=== PATIENT | female | born 1990 | race Caucasian/White ===

== ENCOUNTER 2021-05-24 19:24 | Inpatient (IN) | payer MEDICAID ==
[2021-05-24] MEDS ORDERED: Ondansetron 4 MG/2 ML SDV IVPUSH PRN (20:52)
[2021-05-24] MEDS ORDERED: Lidocaine 1% 50 ML MDV INJECT ONE (20:52)
[2021-05-24] MEDS ORDERED: Acetaminophen 325 MG Tab PO PRN (20:52)
[2021-05-24] MEDS ORDERED: Nalbuphine 10 MG/1 ML Vial IVPUSH PRN (20:52)
[2021-05-24] MEDS ORDERED: Sodium Chloride 0.9% 10 ML Syringe FLUSH PRN ×2 (20:52→23:27)
[2021-05-24] MEDS ORDERED: Calcium Carbonate 500 MG Tab.Chew PO PRN (20:52)
[2021-05-24] MEDS ORDERED: Lactated Ringers 1,000 ML IV SCH ×2 (21:00→23:30)
[2021-05-24] MEDS ORDERED: Oxytocin/Lactated Ringers 10 UNIT/1,000 ML BAG IV SCH ×2 (21:00)
--- NOTE | 2021-05-24 22:42 | PCM.LDHP ---
L&D History of Present Illness - General Date of Service: 05/24/21 Admit Problem/Dx: Patient Status Order with Admit Dx/Problem 05/24/21 20:51 Patient Status [ADT] Routine 05/24/21 20:52 Patient Status [ADT] Routine Admission Diagnosis/Problem Admission Diagnosis/Problem Source of Information: Patient History Limitations: Reports: No Limitations - History of Present Illness Introduction:: 31 yo at 39 weeks gestation who was scheduled for elective induction of labor in the morning due to history of large babies. She has been having contractions today and seemed to be getting stronger, so she came in to be checked. She was 3 cm dilated, 50% effaced when I saw her on 05/22/21. RN exam this evening revealed cx 3-4 cm dilated and mild contractions about every 10 minutes, membranes intact. She is GBS negative with this . Blood type is O positive, antibody screen negative. Infectious disease screenings negative including Hep C. Her 1 hour glucola was borderline at 133, so I did do a 3 hour GTT and it was negative for GDM, with all values wnl. She has had large babies, last baby was 9 lb 1 oz at 39 weeks and was a baby girl. Last ultrasound in this was 05/05/21 and EFW was 7 lb 2 oz (86%), cephalic presentation. LAURY 12.5. She did receive a Tdap with this . Her COVID test on admission is negative. It was decided to keep her tonight and start her induction. - Related Data Allergies/Adverse Reactions: Allergies Allergy/AdvReac Type Severity Reaction Status Date / Time No Known Allergies Allergy Verified 05/24/21 20:48 Home Medications: Home Meds Vits #93/Iron Fum/FA [ Formula Tablet] 1 each PO DAILY 03/04/16 [History] Cetirizine [ZyrTEC] 5 mg PO DAILY 05/24/21 [History] Ferrous Sulfate [Iron] 325 mg PO DAILY 05/24/21 [History] Omeprazole 20 mg PO DAILY 05/24/21 [History] Past Medical History - Past Health History Medical/Surgical History: Denies Medical/Surgical History Social & Family History - Family History Family Medical History: Unobtainable H&P Review of Systems - Review of Systems: Review Of Systems: See Below General: Reports: No Symptoms HEENT: Reports: No Symptoms Pulmonary: Reports: No Symptoms Cardiovascular: Reports: Edema Gastrointestinal: Reports: No Symptoms Genitourinary: Reports: No Symptoms Musculoskeletal: Reports: No Symptoms Skin: Reports: No Symptoms Psychiatric: Reports: No Symptoms Neurological: Reports: No Symptoms Hematologic/Lymphatic: Reports: No Symptoms Immunologic: Reports: No Symptoms L&D Exam - Exam Exam: See Below - Vital Signs Weight: 135.624 kg - OB Specific Contraction Frequency (min): 5 Contraction Intensity: Mild to Moderate Movement: Active Heart Tones: Present Heart Tones per Min: 130 Heart Rate (FHR) Variability: Moderate (6-25 bmp) Presentation: Unable to Assess Estimated Weight: 8 lb - Olson Score Olson Score Cervix Position: Midposition Olson Score Consistency: Soft Olson Score Effacement: 51-70% Olson Score Dilation: 3-4 cm Olson Score 's Station: -3 Olson Score Total: 7 - Exam General: Alert, Oriented HEENT: Conjunctiva Clear, Mucosa Moist & [place] Neck: Supple Lungs: Normal Respiratory Effort Cardiovascular: Regular Rate, Regular Rhythm GI/Abdominal Exam: Normal Bowel Sounds Rectal Exam: Deferred Genitourinary: Normal external exam Back Exam: Normal Inspection, Full Range of Motion Extremities: Normal Inspection, Normal Range of Motion, Pedal Edema Skin: Warm, Dry, Intact Neurological: Cranial Nerves Intact Psychiatric: Alert, Normal Affect, Normal Mood - Patient Data Lab Results Last 24 hrs: Laboratory Results - last 24 hr 05/24/21 05/24/21 Range/Units 21:15 21:15 WBC 8.24 (3.98-10.04) K/mm3 RBC 4.79 (3.98-5.22) M/mm3 Hgb 12.7 (11.2-15.7) gm/dl Hct 38.4 (34.1-44.9) % MCV 80.2 (79.4-94.8) fl MCH 26.5 (25.6-32.2) pg MCHC 33.1 (32.2-35.5) g/dl RDW Std Deviation 45.5 (36.4-46.3) fL Plt Count 278 (182-369) K/mm3 MPV 10.6 (9.4-12.3) fl Neut % (Auto) 60.5 (34.0-71.1) % Lymph % (Auto) 29.1 (19.3-51.7) % Snyder % (Auto) 8.3 (4.7-12.5) % Eos % (Auto) 1.8 (0.7-5.8) Baso % (Auto) 0.1 (0.1-1.2) % Neut # (Auto) 4.98 (1.56-6.13) K/mm3 Lymph # (Auto) 2.40 (1.18-3.74) K/mm3 Snyder # (Auto) 0.68 H (0.24-0.36) K/mm3 Eos # (Auto) 0.15 (0.04-0.36) K/mm3 Baso # (Auto) 0.01 (0.01-0.08) K/mm3 SARS-CoV-2 RNA (BROOKS) Negative (NEGATIVE) Result Diagrams: 05/24/21 21:15 - Problem List (1) 39 weeks gestation of SNOMED Code(s): 80149223 ICD Code: Z3A.39 - 39 WEEKS GESTATION OF Status: Acute Current Visit: Yes (2) Encounter for elective induction of labor SNOMED Code(s): 390814719 ICD Code: Z34.90 - ENCNTR FOR SUPRVSN OF NORMAL , UNSP, UNSP TRIMESTER Status: Acute Current Visit: Yes (3) Conner breech presentation SNOMED Code(s): 02162685 ICD Code: O32.1XX0 - MATERNAL CARE FOR BREECH PRESENTATION, UNSP Status: Acute Current Visit: Yes Problem List Initiated/Reviewed/Updated: Yes Orders Last 24hrs: Active Orders 24 hr Category Date Time Status Patient Status [ADT] Routine ADT 05/24/21 20:52 Active Activity as Tolerated [RC] PFP Care 05/24/21 20:52 Active Communication Order [RC] ASDIRECTED Care 05/24/21 20:52 Active Heart Tones [RC] ASDIRECTED Care 05/24/21 20:53 Active Non Stress Test [RC] PER UNIT ROUTINE Care 05/24/21 20:51 Active Non Stress Test [RC] PER UNIT ROUTINE Care 05/24/21 20:52 Active Notify Provider [RC] PFP Care 05/24/21 20:52 Active Notify Provider [RC] PRN Care 05/24/21 20:52 Active Peripheral IV Care [RC] . DIRECTED Care 05/24/21 20:53 Active Vital Signs [RC] PER UNIT ROUTINE Care 05/24/21 20:51 Active Vital Signs [RC] PER UNIT ROUTINE Care 05/24/21 20:52 Active Regular Diet [DIET] Diet 05/25/21 Breakfast Active RAPID PLASMA REAGIN,RPR [CHEM] Routine Lab 05/24/21 21:15 Received Acetaminophen [TylenoL] Med 05/24/21 20:52 Active 650 mg PO Q4H PRN Calcium Carbonate [Tums] Med 05/24/21 20:52 Active 1,000 mg PO Q2H PRN Lactated Ringers [Ringers, Lactated] 1,000 ml Med 05/24/21 21:00 Active IV ASDIRECTED Nalbuphine [Nubain] Med 05/24/21 20:52 Active 10 mg IVPUSH Q2H PRN Ondansetron [Zofran] Med 05/24/21 20:52 Active 4 mg IVPUSH Q4H PRN Oxytocin/Lactated Ringers [Pitocin in LR 10 Units/1,000 Med 05/24/21 21:00 Active ML] 10 unit in 1,000 ml IV .CONTINUOUS Oxytocin/Lactated Ringers [Pitocin in LR 10 Units/1,000 Med 05/24/21 21:00 Active ML] 10 unit in 1,000 ml IV TITRATE Sodium Chloride 0.9% [Saline Flush] Med 05/24/21 20:52 Active 10 ml FLUSH ASDIRECTED PRN Electronic Heart Tones Ext w TOCO [WOMSER] Oth 05/24/21 20:52 Ordered Routine Electronic Heart Tones Internal [WOMSER] Per Unit Oth 05/24/21 20:52 Ordered Routine Peripheral IV Insertion Adult [OM.PC] Routine Oth 05/24/21 20:52 Ordered Resuscitation Status Routine Resus Stat 05/24/21 20:52 Ordered Medication Orders Acetaminophen (Acetaminophen 325 Mg Tab) 650 mg PO Q4H PRN PRN Reason: Pain (Mild 1-3) and fever Calcium Carbonate/Glycine (Calcium Carbonate 500 Mg Tab.Chew) 1,000 mg PO Q2H PRN PRN Reason: Indigestion Lactated Ringer's (Ringers, Lactated) 1,000 mls @ 100 mls/hr IV ASDIRECTED BIRD Last Admin: 05/24/21 21:18 Dose: 100 mls/hr Documented by: DILLON Oxytocin/Lactated Ringer's (Pitocin In Lr 10 Units/1,000 Ml) 10 unit in 1,000 mls @ 12 mls/hr IV TITRATE BIRD; Protocol Last Admin: 05/24/21 21:19 Dose: 2 munits/min, 12 mls/hr Documented by: DILLON Oxytocin/Lactated Ringer's (Pitocin In Lr 10 Units/1,000 Ml) 10 unit in 1,000 mls @ 500 mls/hr IV .CONTINUOUS BIRD Nalbuphine HCl (Nalbuphine 10 Mg/1 Ml Vial) 10 mg IVPUSH Q2H PRN PRN Reason: Pain Ondansetron HCl (Ondansetron 4 Mg/2 Ml Sdv) 4 mg IVPUSH Q4H PRN PRN Reason: Nausea/Vomiting Sodium Chloride (Sodium Chloride 0.9% 10 Ml Syringe) 10 ml FLUSH ASDIRECTED PRN PRN Reason: Keep Vein Open Assessment/Plan Comment:: 31 you at 39 weeks gestation presents with contractions and elective induction scheduled for tomorrow. Unable to determine presenting part when I examined her. I did do AROM for clear fluid and was not able to determine presenting part. Bedside ultrasound by nursing was not definite either, so we had c t tech come and do ultrasound. Baby is in conner breech presentation with head to maternal right in the upper abdomen. She is in labor and has ruptured membranes, so version is not an option. Will proceed with primary section. Dr. Stafford was consulted to perform . Discussed with patient. She does plan to breastfeed.
[2021-05-24] MEDS ORDERED: Citric Acid/Sodium Citrate Solution 30 ML Cup PO ONE (23:27)
[2021-05-24] MEDS ORDERED: ceFAZolin 2 GM in Premix Bag 1 BAG IV ONE (23:27)
[2021-05-24] MEDS ORDERED: Metoclopramide 10 MG/2 ML SDV IVPUSH ONE (23:27)
[2021-05-24] MEDS ORDERED: Azithromycin 500 MG in Sodium Chloride 0.9% 250 ML IV ONE (23:35)
[2021-05-24] MEDS ORDERED: Citric Acid/Sodium Citrate Solution 30 ML Cup ONE (23:40)
[2021-05-24] MEDS ORDERED: Metoclopramide 10 MG/2 ML SDV ONE (23:41)
[2021-05-24] MEDS ORDERED: Bupivacaine 0.5% 30 ML SDV ONE (23:50)
--- NOTE | 2021-05-24 23:59 | PCM.SN.2 ---
- Free Text/Narrative Note: OB consultation note: Carole is a 31 yo 004 white female at 39 weeks gestation with an FRANCIE of 05/31/2021 who was scheduled for elective induction of labor on 05/25/2021 due to history of large babies. She has been having contractions today and seemed to be getting stronger, so she came in to be checked. She had been 3 cm dilated, 50% effaced when seen on 05/22/21. RN exam this evening revealed cx 3-4 cm dilated and mild contractions about every 10 minutes, membranes intact. With rupture of membranes patient was felt to have a breech presenting . Ultrasound confirmed jered breech presentation. Discussion has been held with patient as to alternative ways of delivery and recommendation is to proceed with a primary section. The procedure, risk, benefits, attempt at vaginal breech delivery and its risks and benefits are discussed in detail with patient. She appears understand and wishes to proceed. Consent is signed for primary low uterine segment transverse section. 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 Patient has had 4 vaginal deliveries in the 7 pounds 1 ounce to 9 pound 1 ounce range. She has had reasonably on remarkable course. She is group B strep negative. She has a history of uterine fibroids affecting . was dated by an ultrasound done on 10/06/2020 at 6-1/7 weeks gestational age. At that time she was noted to have a left posterior fibroid measuring 3 x 2 x 3 cm and a fundal fibroid measuring 1.6 x 1.8 x 1.3 cm. Medications: 1. vitamins 2. Ferrous sulfate 3 and 25 mg p.o. daily. Past medical history: 1. x4. Past surgical history: 1. ACL surgery 2012 2. Laparoscopic cholecystectomy 2011 3. Tonsillectomy 1997. See admission history and physical for family history, social history review of systems. Physical exam: Patient is a overweight white female in no acute distress. She is somewhat anxious regarding the breech presentation recommendations for section. HEENT, neck and back syndromes Lungs are clear with good breath sounds in all lung avalos. Cardiovascular exam shows very regular. Breast exam deferred. Abdomen is obese, patient has a panniculus. Genital exam is deferred. Assessment: 1. 39 0/7-week intrauterine , active labor, progressive cervical dilationfrank breech presentation. 2. Risk factors for surgery include obesity, active labor. 3. Patient plans to breast-feed. 4. Group B strep screen negative 5. Patient is had her Tdap on 03/16/2021. She is rubella immune. Plan: 1. Primary lower uterine segment transverse section through Pfannenstiel skin incision under spinal block. Procedure, risk, benefits, alternatives care and follow-up discussed with patient. She appears understand, wishes to proceed and has signed a consent. 2. DVT prophylaxis with SCDs 3. Infection prophylaxis with Ancef 2 g IV preop and azithromycin per protocol. 4. Preoperative laboratory testing has already been done including CBC, type and screen, COVID-19 testing 5. Support breast-feeding decision 6. Pediatrics to be in attendance for delivery.
--- NOTE | 2021-05-25 00:12 | PCM.PREANE ---
Preanesthetic Assessment - Procedure Proposed Procedure: for breech presentation - Anesthesia/Transfusion/Family Hx Anesthesia History: Prior Anesthesia Without Reaction Family History of Anesthesia Reaction: No Transfusion History: No Prior Transfusion(s) Intubation History: Unknown - Review of Systems General: No Symptoms Pulmonary: No Symptoms Cardiovascular: No Symptoms Gastrointestinal: No Symptoms (GERD), Constipation, Nausea Neurological: No Symptoms Other: Reports: None, Sinus Problem (seasonal allergies) - Physical Assessment NPO Status Date: 05/25/21 NPO Status Time: 03:00 Vital Signs: Last Vital Signs Temp 37.0 C 05/24/21 20:52 Pulse 95 05/24/21 20:52 Resp 16 05/24/21 20:52 BP 111/66 05/24/21 20:52 Pulse Ox 98 05/24/21 20:52 Height: 1.65 m Weight: 135.624 kg ASA Class: 3E Mental Status: Alert & Oriented x3 Airway Class: Mallampati = 2 Dentition: Reports: Normal Dentition, Caries Thyro-Mental Finger Breadths: 3 Mouth Opening Finger Breadths: 3 ROM/Head Extension: Full Lungs: Clear to Auscultation, Normal Respiratory Effort Cardiovascular: Regular Rate, Regular Rhythm, No Murmurs - Lab Values: Laboratory Last Values WBC 8.24 K/mm3 (3.98-10.04) 05/24/21 21:15 RBC 4.79 M/mm3 (3.98-5.22) 05/24/21 21:15 Hgb 12.7 gm/dl (11.2-15.7) 05/24/21 21:15 Hct 38.4 % (34.1-44.9) 05/24/21 21:15 MCV 80.2 fl (79.4-94.8) 05/24/21 21:15 MCH 26.5 pg (25.6-32.2) 05/24/21 21:15 MCHC 33.1 g/dl (32.2-35.5) 05/24/21 21:15 RDW Std Deviation 45.5 fL (36.4-46.3) 05/24/21 21:15 Plt Count 278 K/mm3 (182-369) 05/24/21 21:15 MPV 10.6 fl (9.4-12.3) 05/24/21 21:15 Neut % (Auto) 60.5 % (34.0-71.1) 05/24/21 21:15 Lymph % (Auto) 29.1 % (19.3-51.7) 05/24/21 21:15 [place] % (Auto) 8.3 % (4.7-12.5) 05/24/21 21:15 Eos % (Auto) 1.8 (0.7-5.8) 05/24/21 21:15 Baso % (Auto) 0.1 % (0.1-1.2) 05/24/21 21:15 Neut # (Auto) 4.98 K/mm3 (1.56-6.13) 05/24/21 21:15 Lymph # (Auto) 2.40 K/mm3 (1.18-3.74) 05/24/21 21:15 [place] # (Auto) 0.68 K/mm3 (0.24-0.36) H 05/24/21 21:15 Eos # (Auto) 0.15 K/mm3 (0.04-0.36) 05/24/21 21:15 Baso # (Auto) 0.01 K/mm3 (0.01-0.08) 05/24/21 21:15 SARS-CoV-2 RNA (BROOKS) Negative (NEGATIVE) 05/24/21 21:15 Above labs reviewed and noted and within acceptable ranges to proceed with c- section. - Allergies Allergies/Adverse Reactions: Allergies Allergy/AdvReac Type Severity Reaction Status Date / Time No Known Allergies Allergy Verified 05/24/21 20:48 - Anesthesia Plan Pre-Op Medication Ordered: None - Acknowledgements Anesthesia Type Planned: Spinal Pt an Appropriate Candidate for the Planned Anesthesia: Yes Alternatives and Risks of Anesthesia Discussed w Pt/Guardian: Yes Pt/Guardian Understands and Agrees with Anesthesia Plan: Yes PreAnesthesia Questionnaire - Past Health History Medical/Surgical History: Denies Medical/Surgical History - SUBSTANCE USE Tobacco Use Status *Q: Former Tobacco User Tobacco Use Within Last Twelve Months: Cigarettes Second Hand Smoke Exposure: No Recreational Drug Use History: No - HOME MEDS Home Medications: Home Meds Vits #93/Iron Fum/FA [ Formula Tablet] 1 each PO DAILY 03/04/16 [History] Cetirizine [ZyrTEC] 5 mg PO DAILY 05/24/21 [History] Ferrous Sulfate [Iron] 325 mg PO DAILY 05/24/21 [History] Omeprazole 20 mg PO DAILY 05/24/21 [History] - CURRENT (IN HOUSE) MEDS Current Meds: Current Medications Acetaminophen (Acetaminophen 325 Mg Tab) 650 mg PO Q4H PRN PRN Reason: Pain (Mild 1-3) and fever Calcium Carbonate/Glycine (Calcium Carbonate 500 Mg Tab.Chew) 1,000 mg PO Q2H PRN PRN Reason: Indigestion Lactated Ringer's (Ringers, Lactated) 1,000 mls @ 100 mls/hr IV ASDIRECTED BIRD Last Admin: 05/24/21 21:18 Dose: 100 mls/hr Documented by: Oxytocin/Lactated Ringer's (Pitocin In Lr 10 Units/1,000 Ml) 10 unit in 1,000 mls @ 12 mls/hr IV TITRATE BIRD; Protocol Last Titration: 05/24/21 22:30 Dose: 4 munits/min, 24 mls/hr Documented by: Oxytocin/Lactated Ringer's (Pitocin In Lr 10 Units/1,000 Ml) 10 unit in 1,000 mls @ 500 mls/hr IV .CONTINUOUS BIRD Lactated Ringer's (Ringers, Lactated) 1,000 mls @ 125 mls/hr IV ASDIRECTED BIRD Azithromycin 500 mg/ Sodium (Chloride) 250 mls @ 250 mls/hr IV ONETIME ONE Stop: 05/25/21 00:34 Last Admin: 05/24/21 23:54 Dose: 250 mls/hr Documented by: Nalbuphine HCl (Nalbuphine 10 Mg/1 Ml Vial) 10 mg IVPUSH Q2H PRN PRN Reason: Pain Ondansetron HCl (Ondansetron 4 Mg/2 Ml Sdv) 4 mg IVPUSH Q4H PRN PRN Reason: Nausea/Vomiting Sodium Chloride (Sodium Chloride 0.9% 10 Ml Syringe) 10 ml FLUSH ASDIRECTED PRN PRN Reason: Keep Vein Open Sodium Chloride (Sodium Chloride 0.9% 10 Ml Syringe) 10 ml FLUSH ASDIRECTED PRN PRN Reason: Keep Vein Open Discontinued Medications Bupivacaine HCl (Bupivacaine 0.5% 30 Ml Sdv) Confirm Administered Dose 30 ml .ROUTE .STK-MED ONE Stop: 05/24/21 23:51 Citric Acid/Sodium Citrate (Citric Acid/Sodium Citrate Solution 30 Ml Cup) 30 ml PO ONETIME ONE Stop: 05/24/21 23:28 Last Admin: 05/24/21 23:53 Dose: 30 ml Documented by: Citric Acid/Sodium Citrate (Citric Acid/Sodium Citrate Solution 30 Ml Cup) Confirm Administered Dose 30 ml .ROUTE .STK-MED ONE Stop: 05/24/21 23:41 Cefazolin Sodium/Dextrose 2 gm (/ Premix) 50 mls @ 100 mls/hr IV ONETIME ONE Stop: 05/24/21 23:56 Lidocaine HCl (Lidocaine 1% 50 Ml Mdv) 50 ml INJECT ONETIME ONE Stop: 05/24/21 20:53 Metoclopramide HCl (Metoclopramide 10 Mg/2 Ml Sdv) 10 mg IVPUSH ONETIME ONE Stop: 05/24/21 23:28 Last Admin: 05/24/21 23:53 Dose: 10 mg Documented by: Metoclopramide HCl (Metoclopramide 10 Mg/2 Ml Sdv) Confirm Administered Dose 10 mg .ROUTE .STK-MED ONE Stop: 05/24/21 23:42
[2021-05-25] MEDS ORDERED: Oxytocin 10 Units/1 ML SDV ONE (00:25)
[2021-05-25] MEDS ORDERED: ceFAZolin 1 GM Vial ONE (00:25)
[2021-05-25] MEDS ORDERED: Ketorolac 30 MG/ML SDV ONE (00:25)
[2021-05-25] MEDS ORDERED: Lactated Ringers 2,000 ML ONE (00:25)
[2021-05-25] MEDS ORDERED: Morphine PF 10 MG/10 ML SDV ONE (00:25)
[2021-05-25] MEDS ORDERED: Ondansetron 4 MG/2 ML SDV ONE (00:25)
[2021-05-25] MEDS ORDERED: ePHEDrine 50 MG/ML SDV ONE (00:39)
[2021-05-25] MEDS ORDERED: ePHEDrine 50 MG/ML SDV IVPUSH PRN ×2 (00:53→02:19)
[2021-05-25] MEDS ORDERED: diphenhydrAMINE 50 MG/ML SDV IVPUSH PRN ×2 (00:53→02:19)
[2021-05-25] MEDS ORDERED: fentaNYL 100 MCG/2 ML SDV IVPUSH PRN (00:53)
[2021-05-25] MEDS ORDERED: HYDROmorphone 0.5 MG/0.5 ML Syringe IVPUSH PRN (00:53)
[2021-05-25] MEDS ORDERED: Ondansetron 4 MG/2 ML SDV IVPUSH PRN (00:53)
--- NOTE | 2021-05-25 01:32 | PCM.POSTAN ---
POST ANESTHESIA ASSESSMENT - MENTAL STATUS Mental Status: Alert - VITAL SIGNS Vital Signs: Last Vital Signs Temp 98.5 05/24/21 012 Pulse 95 05/24/21 0126 Resp 19 05/24/21 0126 BP 116/60 05/24/21 0126 Pulse Ox 95% 05/24/21 0126 - RESPIRATORY Respiratory Status: Respiratory Rate WNL, Airway Patent, O2 Saturation Stable - CARDIOVASCULAR CV Status: Pulse Rate WNL, Blood Pressure Stable - GASTROINTESTINAL GI Status: No Symptoms - POST OP HYDRATION Hydration Status: Adequate & Stable
--- NOTE | 2021-05-25 01:42 | PCM.OPNOTE ---
- General Post-Op/Procedure Note Date of Surgery/Procedure: 05/25/21 Operative Procedure(s): Primary low uterine segment transverse section through Pfannenstiel skin incision Findings: Baby was found to be in a jered breech presentation. Amniotic fluid is clear. Uterus tubes ovaries were consistent with term . Several fibroids noted within the uterine wall in subserosal and intramural positions. Baby was a male born at 004 9 hours on 05/25/2023. Apgars were 7 and 9. Weight was 3960 g (8 pounds 12 ounces) Pre Op Diagnosis: 1. 39-week intrauterine . 2. Jered breech presentation. 3. Active labor with progressive cervical dilation Post-Op Diagnosis: Same Anesthesia Technique: Spinal Other Anesthesia Type: Marcaine 0.5% - 20 mL local Primary Surgeon: Joel Stafford Secondary Surgeon: Laurel Armstrong Anesthesia Provider: Josephine Larkin Reason Mental Health Program Specialist Was Necessary: Retraction, assistance, patient safety, quality of care. Fluid Replacement, Intraop: 1,200 Output, Urine Amount: 125 EBL in mLs: 625 Drain/Tube Comments:: Indwelling bladder catheter Complications: None Condition: Good Free Text/Narrative:: Surgery duration: 34 minutes Surgery duration: Procedure: The patient is appropriately consented. Patient was transferred to the room and placed in a sitting position. Spinal anesthesia was administered. After confirmation of adequate anesthesia patient was placed in a supine position with a wedge under her right side to facilitate left lateral positioning. The patient was prepped and draped in usual fashion after Eugene catheter was placed . The anesthetic was checked and found to be adequate. 20 mL of Marcaine 0.5% was injected locally in the Pfannenstiel incision site. The Pfannenstiel skin incision was then made and carried down through skin, subcutaneous and fascial layers. The fascia was then undermined superiorly and inferiorly to allow for adequate operating room. The recti muscles midline and preperitoneal fat was bluntly dissected. Peritoneal cavity was entered longitudinally. The vesicouterine peritoneum was then incised transversely and bladder flap was developed. Myometrium was incised transversely to the level of the amniotic sac. This incision was extended bilaterally in a blunt fashion. The amniotic sac was then ruptured resulting in clear amniotic fluid. A hand is placed in the low uterine segment and the baby's ejred breech was brought forth through the incision. The baby was completely delivered using fundal pressure in a routine fashion. The nose and mouth were bulb suctioned. Baby's cord was clamped x2 cut and baby was handed off to attending dixonac operator Dr Borrego. Placenta was expressed after cord blood was obtained. Uterus was then exteriorized to allow for easier closure. The cervix was assessed and found to be dilated adequately to allow egress of blood. The uterus was closed in 2 layers. The first layer a running locked suture of 0 Monocryl, the second layer a running locked vertical mattress suture of 0 Monocryl. [id number] suture was placed at mid incision to control 1 bleeder. Hemostasis confirmed at this time. Sponge instrument needle counts are correct. The uterus was returned to the abdominal cavity and lateral gutters were cleared of blood. Once again sponge needle counts are correct. The anterior abdominal wall was closed with a #1 PDS suture from angle to angle. The subcutaneous area was found to be free of any bleeders. interrupted sutures of 3-0 Monocryl were used to reapproximate the subcutaneous layer.Skin was closed with a running subcuticular stitch of 3-0 Monocryl in a vertical mattress suture fashion using a Yifan needle. Prineo mesh/glue was then applied to further approximate the incision. It should be noted that patient received 2 g of Ancef and 500 mg of azithromycin per protocol preoperatively for infection prophylaxis and had Pitocin infused after delivery of the placenta to facilitate uterine contraction. She also had sequential compression stockings in place for DVT prophylaxis. Patient was discharged from the operating room in satisfactory condition.
[2021-05-25] MEDS ORDERED: Acetaminophen/oxyCODONE 325-5 MG Tab PO PRN (02:19)
[2021-05-25] MEDS ORDERED: Ibuprofen 800 MG Tab PO SCH (02:19)
[2021-05-25] MEDS ORDERED: Dextrose 5%-Lactated Ringers 1,000 ML IV SCH (02:19)
[2021-05-25] MEDS ORDERED: Docusate Sodium 100 MG Cap PO SCH (02:19)
[2021-05-25] MEDS ORDERED: Ondansetron 4 MG/2 ML SDV IV PRN (02:19)
[2021-05-25] MEDS ORDERED: Naloxone 0.4 MG/ML SDV IVPUSH PRN (02:19)
[2021-05-25] MEDS: Ibuprofen 800 MG Tab PO SCH ×3 (07:58→23:48)
--- NOTE | 2021-05-25 08:39 | US ---
Limited obstetrical ultrasound: Multiple real-time images were obtained transabdominally. Comparison: Previous obstetrical imaging is available, most recent study of 05/04/21. Findings: Fetus is in jered breech presentation with head within the right superior region of the amniotic sac. Impression: 1. Position as described above. Diagnostic code #2 I agree with preliminary report from erma, finalized on 05/25/21, 2:06 AM CDT, code 1
[2021-05-25] MEDS: Simethicone 80 MG Tab.Chew PO SCH ×4 (09:11→20:50)
[2021-05-25] MEDS: Prenatal Multivitamin with Calcium/Folic Acid/Iron Tab PO SCH (09:12)
[2021-05-25] MEDS: Docusate Sodium 100 MG Cap PO SCH ×2 (09:12→20:50)
[2021-05-25] MEDS: Acetaminophen/oxyCODONE 325-5 MG Tab PO PRN (23:49)
[2021-05-26] MEDS: Acetaminophen/oxyCODONE 325-5 MG Tab PO PRN ×4 (04:53→20:36)
[2021-05-26] MEDS: Simethicone 80 MG Tab.Chew PO SCH ×5 (07:31→20:36)
[2021-05-26] MEDS: Prenatal Multivitamin with Calcium/Folic Acid/Iron Tab PO SCH ×2 (07:31→09:16)
[2021-05-26] MEDS: Ibuprofen 800 MG Tab PO SCH ×2 (07:32→17:56)
[2021-05-26] MEDS: Docusate Sodium 100 MG Cap PO SCH ×3 (07:32→20:36)
--- NOTE | 2021-05-26 10:05 | PCM.SN.2 ---
- Free Text/Narrative Note: Post Operative Progress Note POD #1 Subjective: Doing well overall. Ambulating without difficulty. Lochia minimal. Voiding without difficulty. Passing small amounts of flatus. Tolerating regular diet without nausea or vomiting. Pain controlled with oral medications. Breast and bottlefeeding with minimal difficulty. Objective: Vitals: Vital Signs - 8 hr 05/26/21 05/26/21 05/26/21 04:11 07:36 07:37 Temperature 36.7 C 36.7 C 36.7 C Pulse, 64 74 68 Peripheral Respiratory 15 14 14 Rate Blood Pressure 100/53 L 108/54 L 108/54 L O2 Sat by Pulse 94 L 96 96 Oximetry Physical Exam General: Alert and oriented, no acute distress Lungs: Clear to auscultation bilaterally Heart: Regular rate and rhythm Abdomen: Soft, minimal appropriate tenderness, non-distended, fundus midline, nontender and at the umbilicus Incision: Clean, dry and intact, no erythema, bleeding or drainage with Prineo dressing in place Extremities: 1+ edema in bilateral lower extremities to mid shins, no calf tenderness bilaterally Labs: Laboratory Tests 05/24/21 05/24/21 05/24/21 Range/Units 21:15 21:15 21:15 WBC 8.24 (3.98-10.04) K/mm3 RBC 4.79 (3.98-5.22) M/mm3 Hgb 12.7 (11.2-15.7) gm/dl Hct 38.4 (34.1-44.9) % MCV 80.2 (79.4-94.8) fl MCH 26.5 (25.6-32.2) pg MCHC 33.1 (32.2-35.5) g/dl RDW Std Deviation 45.5 (36.4-46.3) fL Plt Count 278 (182-369) K/mm3 MPV 10.6 (9.4-12.3) fl Neut % (Auto) 60.5 (34.0-71.1) % Lymph % (Auto) 29.1 (19.3-51.7) % [place] % (Auto) 8.3 (4.7-12.5) % Eos % (Auto) 1.8 (0.7-5.8) Baso % (Auto) 0.1 (0.1-1.2) % Neut # (Auto) 4.98 (1.56-6.13) K/mm3 Lymph # (Auto) 2.40 (1.18-3.74) K/mm3 [place] # (Auto) 0.68 H (0.24-0.36) K/mm3 Eos # (Auto) 0.15 (0.04-0.36) K/mm3 Baso # (Auto) 0.01 (0.01-0.08) K/mm3 SARS-CoV-2 RNA (BROOKS) Negative (NEGATIVE) Blood Type O POSITIVE Gel Antibody Screen Negative 05/25/21 05/25/21 05/26/21 Range/Units 05:25 16:36 05:55 WBC 13.08 H 8.05 8.28 (3.98-10.04) K/mm3 RBC 4.30 4.00 3.88 L (3.98-5.22) M/mm3 Hgb 11.3 10.3 L 10.2 L (11.2-15.7) gm/dl Hct 34.7 32.7 L 32.1 L (34.1-44.9) % MCV 80.7 81.8 82.7 (79.4-94.8) fl MCH 26.3 25.8 26.3 (25.6-32.2) pg MCHC 32.6 31.5 L 31.8 L (32.2-35.5) g/dl RDW Std Deviation 46.1 46.4 H 47.9 H (36.4-46.3) fL Plt Count 269 224 226 (182-369) K/mm3 MPV 10.8 10.8 10.6 (9.4-12.3) fl Neut % (Auto) 81.6 H (34.0-71.1) % Lymph % (Auto) 12.5 L (19.3-51.7) % [place] % (Auto) 5.4 (4.7-12.5) % Eos % (Auto) 0.2 L (0.7-5.8) Baso % (Auto) 0.1 (0.1-1.2) % Neut # (Auto) 10.68 H (1.56-6.13) K/mm3 Lymph # (Auto) 1.63 (1.18-3.74) K/mm3 [place] # (Auto) 0.71 H (0.24-0.36) K/mm3 Eos # (Auto) 0.03 L (0.04-0.36) K/mm3 Baso # (Auto) 0.01 (0.01-0.08) K/mm3 SARS-CoV-2 RNA (BROOKS) (NEGATIVE) Blood Type Gel Antibody Screen ASSESSMENT: 31-year-old female -0-0-5 s/p primary section POD #1 for jered breech presentation, complicated by elevated 1 hour glucose tolerance test with normal 3-hour glucose tolerance test PLAN: Doing well Breast and bottlefeeding with minimal difficulty. Assist as needed Incision healing well. Continue to keep clean and dry. Lochia minimal. Continue to monitor for appropriate lochia. Continue routine post-operative care Anticipate discharge home tomorrow if she continues to progress normally Rafal Zepeda MD 10:04 AM 05/26/2021
--- NOTE | 2021-05-26 14:34 | PCM48HPAN ---
Post Anesthesia Note - EVALUATION WITHIN 48HRS OF ANESTHETIC Vital Signs in Normal Range: Yes Patient Participated in Evaluation: Yes Respiratory Function Stable: Yes Airway Patent: Yes Cardiovascular Function Stable: Yes Hydration Status Stable: Yes Pain Control Satisfactory: Yes Nausea and Vomiting Control Satisfactory: Yes Mental Status Recovered: Yes Vital Signs: Last Vital Signs Temp 98.1 F 05/26/21 07:37 Pulse 68 05/26/21 07:37 Resp 14 05/26/21 07:37 BP 108/54 L 05/26/21 07:37 Pulse Ox 96 05/26/21 07:37 - COMMENTS/OBSERVATIONS Free Text/Narrative:: Patient up in bed with baby. Patient stated her experience was "good". Patient denied nausea and itching at this time. Patient stated that she does have some soreness in lower back where spinal was placed. Patient stated pain felt like a dull "bruise-like" feeling but relieved with pain medication. Patient also denying signs and symptoms of a post-dural puncture headache. Discussed with patient to call OB of any new symptoms occur: signs of infection, signs of post-dural puncture headache, increased pain in back, as well as signs of depression. Reviewed that OB would be able to get a hold of the anesthesia department and we would be able to get in contact with her if any other questions or concerns arise. Patient verbalized understanding. Patient smiling and appears to be happy with her care. Iris Mullen, BACK MAKER
[2021-05-27] MEDS: Ibuprofen 800 MG Tab PO SCH ×2 (00:52→07:20)
[2021-05-27] MEDS: Acetaminophen/oxyCODONE 325-5 MG Tab PO PRN ×2 (03:03→10:29)
[2021-05-27 09:40] VITALS: BP 129/48; PULSE 65
[2021-05-27] MEDS: Prenatal Multivitamin with Calcium/Folic Acid/Iron Tab PO SCH (10:29)
[2021-05-27] MEDS: Docusate Sodium 100 MG Cap PO SCH (10:29)
[2021-05-27] MEDS: Simethicone 80 MG Tab.Chew PO SCH (10:29)
--- NOTE | 2021-05-27 10:29 | PCM.SN.2 ---
- Free Text/Narrative Note: Post Operative Progress Note POD #2 Subjective: Doing well overall. Ambulating without difficulty. Lochia minimal. Voiding without difficulty. Continues to pass flatus without difficulty and reports that she did have a bowel movement. Tolerating regular diet without nausea or vomiting. Pain controlled with oral medications. Breast and bottlefeeding with minimal difficulty. Objective: Vitals: Vital Signs - 24 hr 05/26/21 05/26/21 05/27/21 14:23 20:37 03:17 Temperature 36.6 C 36.3 C 36.8 C Pulse, 68 73 78 Peripheral Respiratory 14 15 16 Rate Blood Pressure 111/58 L 112/57 L 126/68 O2 Sat by Pulse 96 97 96 Oximetry 05/27/21 05/27/21 09:17 09:18 Temperature 36.7 C 36.7 C Pulse, 65 65 Peripheral Respiratory 14 14 Rate Blood Pressure 129/48 L 129/48 L O2 Sat by Pulse 98 98 Oximetry Physical Exam General: Alert and oriented, no acute distress Lungs: Clear to auscultation bilaterally Heart: Regular rate and rhythm Abdomen: Soft, minimal appropriate tenderness, non-distended, fundus midline, nontender and at the umbilicus Incision: Clean, dry and intact, no erythema, bleeding or drainage with Prineo dressing in place Extremities: 1+ edema in bilateral lower extremities to mid shins, no calf tenderness bilaterally ASSESSMENT: 31-year-old female -0-0-5 s/p primary section POD #2 for jered breech presentation, complicated by elevated 1 hour glucose tolerance test with normal 3-hour glucose tolerance test PLAN: Doing well Breast and bottlefeeding with minimal difficulty. Assist as needed Incision healing well. Continue to keep clean and dry. Lochia minimal. Continue to monitor for appropriate lochia. Continue routine post-operative care Anticipate discharge home today Rafal Zepeda MD 10:28 AM 05/27/2021
--- NOTE | 2021-05-27 10:34 | PCM.DCSUM1 ---
Discharge Summary - Hospital Course Free Text/Narrative:: - General Post-Op/Procedure Note Date of Surgery/Procedure: 05/25/21 Operative Procedure(s): Primary low uterine segment transverse section through Pfannenstiel skin incision Findings: Baby was found to be in a jered breech presentation. Amniotic fluid is clear. Uterus tubes ovaries were consistent with term . Several fibroids noted within the uterine wall in subserosal and intramural positions. Baby was a male born at 004 9 hours on 05/25/2023. Apgars were 7 and 9. Weight was 3960 g (8 pounds 12 ounces) Pre Op Diagnosis: 1. 39-week intrauterine . 2. Jered breech presentation. 3. Active labor with progressive cervical dilation Post-Op Diagnosis: Same Anesthesia Technique: Spinal Other Anesthesia Type: Marcaine 0.5% - 20 mL local Primary Surgeon: Joel Stafford Secondary Surgeon: Laurel Armstrong Anesthesia Provider: Josephine Larkin Reason Digital Analytics Manager Was Necessary: Retraction, assistance, patient safety, quality of care. Fluid Replacement, Intraop: 1,200 Output, Urine Amount: 125 EBL in mLs: 625 Drain/Tube Comments:: Indwelling bladder catheter Complications: None Condition: Good Free Text/Narrative:: Surgery duration: 34 minutes Surgery duration: Procedure: The patient is appropriately consented. Patient was transferred to the room and placed in a sitting position. Spinal anesthesia was administered. After confirmation of adequate anesthesia patient was placed in a supine position with a wedge under her right side to facilitate left lateral positioning. The patient was prepped and draped in usual fashion after Eugene catheter was placed . The anesthetic was checked and found to be adequate. 20 mL of Marcaine 0.5% was injected locally in the Pfannenstiel incision site. The Pfannenstiel skin incision was then made and carried down through skin, subcutaneous and fascial layers. The fascia was then undermined superiorly and inferiorly to allow for adequate operating room. The recti muscles midline and preperitoneal fat was bluntly dissected. Peritoneal cavity was entered longitudinally. The vesicouterine peritoneum was then incised transversely and bladder flap was developed. Myometrium was incised transversely to the level of the amniotic sac. This incision was extended bilaterally in a blunt fashion. The amniotic sac was then ruptured resulting in clear amniotic fluid. A hand is placed in the low uterine segment and the baby's jered breech was brought forth through the incision. The baby was completely delivered using fundal pressure in a routine fashion. The nose and mouth were bulb suctioned. Baby's cord was clamped x2 cut and baby was handed off to attending animal geneticist Dr Borrego. Placenta was expressed after cord blood was obtained. Uterus was then exteriorized to allow for easier closure. The cervix was assessed and found to be dilated adequately to allow egress of blood. The uterus was closed in 2 layers. The first layer a running locked suture of 0 Monocryl, the second layer a running locked vertical mattress suture of 0 Monocryl. [id number] suture was placed at mid incision to control 1 bleeder. Hemostasis confirmed at this time. Sponge instrument needle counts are correct. The uterus was returned to the abdominal cavity and lateral gutters were cleared of blood. Once again sponge needle counts are correct. The anterior abdominal wall was closed with a #1 PDS suture from angle to angle. The subcutaneous area was found to be free of any bleeders. interrupted sutures of 3-0 Monocryl were used to reapproximate the subcutaneous layer.Skin was closed with a running subcuticular stitch of 3-0 Monocryl in a vertical mattress suture fashion using a Yifan needle. Prineo mesh/glue was then applied to further approximate the incision. It should be noted that patient received 2 g of Ancef and 500 mg of azithromycin per protocol preoperatively for infection prophylaxis and had Pitocin infused after delivery of the placenta to facilitate uterine contraction. She also had sequential compression stockings in place for DVT prophylaxis. Patient was discharged from the operating room in satisfactory condition. Diagnosis: Stroke: No - Discharge Data Discharge Date: 05/27/21 Discharge Disposition: Home, Self-Care 01 Condition: Good - Referral to Home Health Primary Care Physician: Laurel Armstrong MD - Discharge Diagnosis/Problem(s) (1) delivery delivered SNOMED Code(s): 738435591 ICD Code: O82 - ENCOUNTER FOR DELIVERY WITHOUT INDICATION Status: Acute Current Visit: Yes (2) 39 weeks gestation of SNOMED Code(s): 23072930 ICD Code: Z3A.39 - 39 WEEKS GESTATION OF Status: Acute Current Visit: Yes (3) Encounter for elective induction of labor SNOMED Code(s): 127198817 ICD Code: Z34.90 - ENCNTR FOR SUPRVSN OF NORMAL , UNSP, UNSP TRIMESTER Status: Acute Current Visit: Yes (4) Jered breech presentation SNOMED Code(s): 64515021 ICD Code: O32.1XX0 - MATERNAL CARE FOR BREECH PRESENTATION, UNSP Status: Acute Current Visit: Yes - Patient Summary/Data Operative Procedure(s) Performed: Primary low uterine segment transverse section through Pfannenstiel skin incision Complications: Breech presentation noted after artificial rupture of membranes Consults: Dr. Joel Stafford for primary section after patient determined to be in jered breech presentation Hospital Course: Carole Moss was admitted for elective induction of labor after she presented with regular contractions that were not causing cervical change. She was started on Pitocin for augmentation of labor. She was 4 cm dilated. She underwent artificial rupture membranes with lightly bloodstained fluid. After artificial rupture membranes and was unable to determine presentation of and ultrasound was performed. was found to be in jered breech presentation and on-call [employer] PROGRAMMER was contacted to perform primary section in the setting of breech presentation for the . She was taken back to the OR and given spinal injection for anesthesia. She was given Ancef 2 g IV for antibiotic prophylaxis. She was prepped and draped in the normal fashion. On 05/25/2021 she had a normal primary delivery of a live male infant at 00:49. Apgars of 7 and 9. Weight of 3960 g (8 pounds 11.7 ounces). She was closed in a normal fashion. There were no complications with the procedure. Please see the operative report for full details. Her post operative course was uneventful. Her pain was well controlled and she had minimal lochia. She was ambulating, tolerating a regular diet and voiding normally. She was passing flatus and has had a bowel movement. She was breast and bottlefeeding without difficulty. She was afebrile and her hematocrit was 32.1 on POD #1. She desired to be discharged home on the morning of POD #2. Her blood type is O+. - Patient Instructions Diet: Regular Diet as Tolerated Activity: Apply Ice, As Tolerated, No Lifting Over 20 Pounds Activity, Other: Nothing in the vagina for 6 weeks Driving: Do Not Drive (While taking narcotic medications are having significant pain) Showering/Bathing: May Shower Wound/Incision Care: Keep Operative Site/Wound Site Clean and Dry Notify Provider of: Fever, Increased Pain, Swelling and Redness, Drainage, Nausea and/or Vomiting Other/Special Instructions: Please contact your physician's office if you note any bleeding or pus coming from the abdominal incision. Please contact your physician's office if you have heavy vaginal bleeding enough to soak a pad in less than an hour for several hours. Monitor for any signs of an infection in the breasts with severe pain or redness of the breast. - Discharge Plan *PRESCRIPTION DRUG MONITORING PROGRAM REVIEWED*: Yes *COPY OF PRESCRIPTION DRUG MONITORING REPORT IN PATIENT MAC: No Prescriptions/Med Rec: Acetaminophen/oxyCODONE [Percocet 325-5 MG] 1 - 2 tab PO Q4H PRN #30 tablet PRN Reason: Pain Home Medications: Home Meds Vits #93/Iron Fum/FA [ Formula Tablet] 1 each PO DAILY 03/04/16 [History] Cetirizine [ZyrTEC] 5 mg PO DAILY 05/24/21 [History] Ferrous Sulfate [Iron] 325 mg PO DAILY 05/24/21 [History] Acetaminophen/oxyCODONE [Percocet 325-5 MG] 1 - 2 tab PO Q4H PRN #30 tablet 05/27/21 [Rx] Docusate Sodium [Colace] 100 mg PO BID cap 05/27/21 [Rx] Ibuprofen [Motrin] 800 mg PO Q8H tablet 05/27/21 [Rx] Simethicone 160 mg PO QID tab.chew 05/27/21 [Rx] Patient Handouts: Care After Delivery Referrals: Joel Stafford MD [Physician] - (Follow-up in 2 weeks for routine postoperative visit or earlier as needed.) - Discharge Summary/Plan Comment DC Time >30 min.: No - Patient Data Vitals - Most Recent: Last Vital Signs Temp 36.7 C 05/27/21 09:18 Pulse 65 05/27/21 09:18 Resp 14 05/27/21 09:18 BP 129/48 L 05/27/21 09:18 Pulse Ox 98 05/27/21 09:18 Weight - Most Recent: 135.624 kg I&O - Last 24 hours: Intake & Output 05/26/21 05/27/21 05/27/21 22:59 06:59 14:59 Intake Total 0 Balance 0 Med Orders - Current: Current Medications Diphenhydramine HCl (Diphenhydramine 50 Mg/Ml Sdv) 25 mg IVPUSH Q6H PRN PRN Reason: Itching or Nausea Docusate Sodium (Docusate Sodium 100 Mg Cap) 100 mg PO BID [facility] Last Admin: 05/26/21 20:36 Dose: 100 mg Documented by: Ephedrine Sulfate (Ephedrine 50 Mg/Ml Sdv) 5 mg IVPUSH SEECOMMENT PRN PRN Reason: Other Ibuprofen (Ibuprofen 800 Mg Tab) 800 mg PO Q8H [facility] Last Admin: 05/27/21 07:20 Dose: 800 mg Documented by: Naloxone HCl (Naloxone 0.4 Mg/Ml Sdv) 0.1 mg IVPUSH SEECOMMENT PRN PRN Reason: Respiratory Depression Ondansetron HCl (Ondansetron 4 Mg/2 Ml Sdv) 4 mg IV Q4H PRN PRN Reason: Nausea/Vomiting Oxycodone/Acetaminophen (Acetaminophen/Oxycodone 325-5 Mg Tab) 1 tab PO Q4H PRN PRN Reason: Pain (moderate 4-6) Last Admin: 05/25/21 18:35 Dose: 1 tab Documented by: Oxycodone/Acetaminophen (Acetaminophen/Oxycodone 325-5 Mg Tab) 2 tab PO Q4H PRN PRN Reason: Pain (severe 7-10) Last Admin: 05/27/21 03:03 Dose: 2 tab Documented by: Prenat Multivit/Mcduffie/Iron/Folic Ac ( Multivitamin With Calcium/Folic Acid/Iron Tab) 1 each PO DAILY [facility] Last Admin: 05/26/21 09:16 Dose: Not Given Documented by: Simethicone (Simethicone 80 Mg Tab.Chew) 160 mg PO QID [facility] Last Admin: 05/26/21 20:36 Dose: 160 mg Documented by: Discontinued Medications Acetaminophen (Acetaminophen 325 Mg Tab) 650 mg PO Q4H PRN PRN Reason: Pain (Mild 1-3) and fever Bupivacaine HCl (Bupivacaine 0.5% 30 Ml Sdv) Confirm Administered Dose 30 ml .ROUTE .STK-MED ONE Stop: 05/24/21 23:51 Last Admin: 05/25/21 00:45 Dose: 20 ml Documented by: Calcium Carbonate/Glycine (Calcium Carbonate 500 Mg Tab.Chew) 1,000 mg PO Q2H PRN PRN Reason: Indigestion Cefazolin Sodium (Cefazolin 1 Gm Vial) Confirm Administered Dose 3 gm .ROUTE .[employer] ONE Stop: 05/25/21 00:26 Citric Acid/Sodium Citrate (Citric Acid/Sodium Citrate Solution 30 Ml Cup) 30 ml PO ONETIME ONE Stop: 05/24/21 23:28 Last Admin: 05/24/21 23:53 Dose: 30 ml Documented by: Citric Acid/Sodium Citrate (Citric Acid/Sodium Citrate Solution 30 Ml Cup) Confirm Administered Dose 30 ml .ROUTE .[employer] ONE Stop: 05/24/21 23:41 Last Admin: 05/26/21 05:56 Dose: Not Given Documented by: Diphenhydramine HCl (Diphenhydramine 50 Mg/Ml Sdv) 25 mg IVPUSH Q6H PRN PRN Reason: pruritis Docusate Sodium (Docusate Sodium 100 Mg Cap) 100 mg PO Q12H [facility] Last Admin: 05/26/21 05:57 Dose: Not Given Documented by: Ephedrine Sulfate (Ephedrine 50 Mg/Ml Sdv) Confirm Administered Dose 50 mg .ROUTE .[employer] ONE Stop: 05/25/21 00:40 Ephedrine Sulfate (Ephedrine 50 Mg/Ml Sdv) 5 mg IVPUSH ASDIRECTED PRN PRN Reason: Hypotension Fentanyl (Fentanyl 100 Mcg/2 Ml Sdv) 50 mcg IVPUSH Q20M PRN PRN Reason: Pain Hydromorphone HCl (Hydromorphone 0.5 Mg/0.5 Ml Syringe) 0.5 mg IVPUSH Q10M PRN PRN Reason: Pain (severe 7-10) Lactated Ringer's (Ringers, Lactated) 1,000 mls @ 100 mls/hr IV ASDIRECTED [facility] Last Admin: 05/24/21 21:18 Dose: 100 mls/hr Documented by: Oxytocin/Lactated Ringer's (Pitocin In Lr 10 Units/1,000 Ml) 10 unit in 1,000 mls @ 12 mls/hr IV TITRATE [facility]; Protocol Last Titration: 05/24/21 22:30 Dose: 4 munits/min, 24 mls/hr Documented by: Oxytocin/Lactated Ringer's (Pitocin In Lr 10 Units/1,000 Ml) 10 unit in 1,000 mls @ 500 mls/hr IV .CONTINUOUS [facility] Lactated Ringer's (Ringers, Lactated) 1,000 mls @ 125 mls/hr IV ASDIRECTED [facility] Cefazolin Sodium/Dextrose 2 gm (/ Premix) 50 mls @ 100 mls/hr IV ONETIME ONE Stop: 05/24/21 23:56 Last Admin: 05/26/21 05:56 Dose: Not Given Documented by: Azithromycin 500 mg/ Sodium (Chloride) 250 mls @ 250 mls/hr IV ONETIME ONE Stop: 05/25/21 00:34 Last Admin: 05/24/21 23:54 Dose: 250 mls/hr Documented by: Lactated Ringer's (Ringers, Lactated) Confirm Administered Dose 2,000 mls @ as directed .ROUTE .STK-MED ONE Stop: 05/25/21 00:26 Dextrose/Lactated Ringer's (Dextrose 5%-Lactated Ringers) 1,000 mls @ 125 mls/hr IV ASDIRECTED [facility] Stop: 05/25/21 10:18 Last Admin: 05/25/21 09:19 Dose: 125 mls/hr Documented by: Ibuprofen (Ibuprofen 800 Mg Tab) 800 mg PO Q8H [facility] Last Admin: 05/26/21 05:57 Dose: Not Given Documented by: Ketorolac Tromethamine (Ketorolac 30 Mg/Ml Sdv) Confirm Administered Dose 30 mg .ROUTE .STK-MED ONE Stop: 05/25/21 00:26 Lidocaine HCl (Lidocaine 1% 50 Ml Mdv) 50 ml INJECT ONETIME ONE Stop: 05/24/21 20:53 Last Admin: 05/26/21 05:56 Dose: Not Given Documented by: Metoclopramide HCl (Metoclopramide 10 Mg/2 Ml Sdv) 10 mg IVPUSH ONETIME ONE Stop: 05/24/21 23:28 Last Admin: 05/24/21 23:53 Dose: 10 mg Documented by: Metoclopramide HCl (Metoclopramide 10 Mg/2 Ml Sdv) Confirm Administered Dose 10 mg .ROUTE .STK-MED ONE Stop: 05/24/21 23:42 Last Admin: 05/26/21 05:57 Dose: Not Given Documented by: Miscellaneous Medication (Phenylephrine Hcl In 0.9% Nacl 1 Mg/10 Ml Syringe) Confirm Administered Dose 1 mg .ROUTE .[employer] ONE Stop: 05/25/21 00:26 Miscellaneous Medication (Phenylephrine Hcl In 0.9% Nacl 1 Mg/10 Ml Syringe) 0.1 mg IVPUSH Q10M PRN PRN Reason: Hypotension Morphine Sulfate (Morphine Pf 10 Mg/10 Ml Sdv) Confirm Administered Dose 10 mg .ROUTE .[employer] ONE Stop: 05/25/21 00:26 Nalbuphine HCl (Nalbuphine 10 Mg/1 Ml Vial) 10 mg IVPUSH Q2H PRN PRN Reason: Pain Ondansetron HCl (Ondansetron 4 Mg/2 Ml Sdv) 4 mg IVPUSH Q4H PRN PRN Reason: Nausea/Vomiting Ondansetron HCl (Ondansetron 4 Mg/2 Ml Sdv) Confirm Administered Dose 4 mg .ROUTE .[employer] ONE Stop: 05/25/21 00:26 Ondansetron HCl (Ondansetron 4 Mg/2 Ml Sdv) 4 mg IVPUSH ONETIME PRN PRN Reason: Nausea/Vomiting Oxytocin (Oxytocin 10 Units/1 Ml Sdv) Confirm Administered Dose 20 unit .ROUTE .[employer] ONE Stop: 05/25/21 00:26 Sodium Chloride (Sodium Chloride 0.9% 10 Ml Syringe) 10 ml FLUSH ASDIRECTED PRN PRN Reason: Keep Vein Open Sodium Chloride (Sodium Chloride 0.9% 10 Ml Syringe) 10 ml FLUSH ASDIRECTED PRN PRN Reason: Keep Vein Open
== END 2021-05-27 11:06 | disposition home or self-care (01) | DRG 788 ==
LOC: JD.OB 19:24 → JD.OBCHECK 19:24 → JD.OB 20:52 → OBSVTOIN 05-25 00:49
PROVIDERS: ADMIT Family Medicine; ATTEND Family Medicine
PROC: 10D00Z1 Extraction of Products of Conception, Low, Open Approach (ICD-10-PCS; principal; 2021-05-25)
PROC: 10907ZC Drainage of Amniotic Fluid, Therapeutic from Products of Conception, Via Natural or Artificial Opening (ICD-10-PCS; 2021-05-25)
DX: O34.13 Maternal care for benign tumor of corpus uteri, third trimester (principal); D25.1 Intramural leiomyoma of uterus; D25.2 Subserosal leiomyoma of uterus; Z3A.39 39 weeks gestation of pregnancy; Z37.0 Single live birth; O32.1XX0 Maternal care for breech presentation, not applicable or unspecified; Z20.822 Contact with and (suspected) exposure to COVID-19
CPT/HCPCS: 01961; 36415; 59025; 76815; 76815-26; 85025; 85027; 86592; 86850; 86900; 86901; 94762; 99140; A9270-GY; J0456; J0690; J1885; J2270; J2370; J2405; J2590; J2765; J3490; J7050; J7120; J7121; U0002

== ENCOUNTER 2021-06-02 19:20 | Emergency (ER) | payer MEDICAID ==
[2021-06-02 19:34] VITALS: BP 129/70; PULSE 59
--- NOTE | 2021-06-02 20:02 | EDM.PDOC ---
ED HPI GENERAL MEDICAL PROBLEM - General Chief Complaint: Respiratory Problem Stated Complaint: HAD A LAST FRIDAY NOW HAS PAIN AND SOB Time Seen by Provider: 06/02/21 19:51 - History of Present Illness INITIAL COMMENTS - FREE TEXT/NARRATIVE: 31-year-old female presents the emergency room with shortness of breath chest pain and generalized not feeling great. Patient is 8 days following a . This was her fifth delivery first C- section. Over the last several days the patient has had worsening pain up by her left shoulder blade. This is somewhat irritated with deep breathing. Patient also has continued puffiness and edema following the . She was edematous prior to delivery but this is not resolved. She has no nausea vomiting no significant change in bowel habits. She is not aware of any fevers or chills. Right Chest Pain Score (Numeric/FACES): 8 - Related Data Allergies Allergy/AdvReac Type Severity Reaction Status Date / Time No Known Allergies Allergy Verified 06/02/21 19:34 Home Meds: Home Meds Acetaminophen/oxyCODONE [Percocet 325-5 MG] 1 - 2 tab PO Q4H PRN #30 tablet [Rx] Ibuprofen [Motrin] 800 mg PO Q8H tablet 05/27/21 [Rx] Past Medical History - Past Health History Medical/Surgical History: Denies Medical/Surgical History Social & Family History - Family History Family Medical History: Unobtainable - Tobacco Use Tobacco Use Status *Q: Never Tobacco User - Recreational Drug Use Recreational Drug Use: No ED ROS GENERAL - Review of Systems Review Of Systems: See Below Constitutional: Reports: No Symptoms HEENT: Reports: No Symptoms Respiratory: Reports: Shortness of Breath, Pleuritic Chest Pain Cardiovascular: Reports: No Symptoms Endocrine: Reports: No Symptoms GI/Abdominal: Reports: No Symptoms, Other (Some discomfort but I think: All post she is doing good) : Reports: No Symptoms Musculoskeletal: Reports: Leg Pain, Foot Pain, Other (Bilateral leg pain) Skin: Reports: No Symptoms Neurological: Reports: No Symptoms Psychiatric: Reports: Other Hematologic/Lymphatic: Reports: No Symptoms ED EXAM, GENERAL - Physical Exam Exam: See Below Exam Limited By: No Limitations General Appearance: Alert, No Apparent Distress Head: Atraumatic, Normocephalic Neck: Normal Inspection, Supple, Non-Tender, Full Range of Motion Respiratory/Chest: No Respiratory Distress, Lungs Clear, Normal Breath Sounds Cardiovascular: Regular Rate, Rhythm, No Edema, No Murmur GI/Abdominal: Normal Bowel Sounds, Soft, Other (Discomfort with palpation no rigidity rebound or guarding. site looks great no erythema no drainage no warmth) Back Exam: Normal Inspection. No: CVA Tenderness (L), CVA Tenderness (R) Extremities: Normal Inspection, Normal Range of Motion, Other (1-2+ pitting edema in the bilateral lower extremities. No significant calf discomfort with palpation) Neurological: Alert, Oriented, Normal Cognition Skin Exam: Warm, Dry, Intact Lymphatic: No Adenopathy #1 Interpretation EKG Date: 06/02/21 Rhythm: Other (Sinus bradycardia) Rate (Beats/Min): 49 [place]: Normal P-Wave: Present QRS: Normal ST-T: Normal QT: Normal EKG Interpretation Comments: Sinus bradycardia otherwise normal EKG. Course - Vital Signs Last Recorded V/S: Last Vital Signs Temp 36.2 C 06/02/21 19:31 Pulse 59 L 06/02/21 19:31 Resp 19 06/02/21 19:31 BP 129/70 06/02/21 19:31 Pulse Ox 95 06/02/21 19:31 - Orders/Labs/Meds Orders: Active Orders 24 hr Category Date Time Status EKG 12 Lead [EKG Documentation Completion] [RC] STAT Care 06/02/21 19:40 Active Holter Monitor 24 Hours [RC] .PRN Care 06/02/21 23:28 Ordered RT Post Treatment Assessment [RC] Click to Edit Care 06/02/21 23:17 Active RT Pre-Treatment Assessment [RC] Click to Edit Care 06/02/21 23:17 Active Ang Chest [CT] Stat Exams 06/02/21 21:16 Taken Sodium Chloride 0.9% [Normal Saline] 100 ml Med 06/02/21 22:15 Active IV ASDIRECTED Sodium Chloride 0.9% [Saline Flush] Med 06/02/21 22:15 Active 10 ml FLUSH BOLUS Medication Orders Sodium Chloride (Normal Saline) 100 mls @ 60 drops/min IV ASDIRECTED BIRD Last Admin: 06/02/21 22:15 Dose: 60 drops/min Documented by: ONEIGIN Sodium Chloride (Sodium Chloride 0.9% 10 Ml Syringe) 10 ml FLUSH BOLUS BIRD Last Admin: 06/02/21 22:14 Dose: 10 ml Documented by: ONENORTHIN Labs: Laboratory Tests 06/02/21 06/02/21 06/02/21 Range/Units 20:25 20:25 20:25 WBC 7.95 (3.98-10.04) K/mm3 RBC 4.24 (3.98-5.22) M/mm3 Hgb 11.1 L (11.2-15.7) gm/dl Hct 35.0 (34.1-44.9) % MCV 82.5 (79.4-94.8) fl MCH 26.2 (25.6-32.2) pg MCHC 31.7 L (32.2-35.5) g/dl RDW Std Deviation 43.9 (36.4-46.3) fL Plt Count 400 H D (182-369) K/mm3 MPV 9.8 (9.4-12.3) fl Neut % (Auto) 50.6 (34.0-71.1) % Lymph % (Auto) 37.0 (19.3-51.7) % [place] % (Auto) 7.7 (4.7-12.5) % Eos % (Auto) 3.9 (0.7-5.8) Baso % (Auto) 0.5 (0.1-1.2) % Neut # (Auto) 4.03 (1.56-6.13) K/mm3 Lymph # (Auto) 2.94 (1.18-3.74) K/mm3 [place] # (Auto) 0.61 H (0.24-0.36) K/mm3 Eos # (Auto) 0.31 (0.04-0.36) K/mm3 Baso # (Auto) 0.04 (0.01-0.08) K/mm3 Sodium 143 (136-145) mEq/L Potassium 3.9 (3.5-5.1) mEq/L Chloride 108 H (98-107) mEq/L Carbon Dioxide 24 (21-32) mEq/L Anion Gap 14.9 (5-15) BUN 13 (7-18) mg/dL Creatinine 1.0 (0.55-1.02) mg/dL Est Cr Clr Drug Dosing 72.00 mL/min Estimated GFR (MDRD) > 60 (>60) mL/min BUN/Creatinine Ratio 13.0 L (14-18) Glucose 99 (70-99) mg/dL Calcium 8.2 L (8.5-10.1) mg/dL Total Bilirubin 0.5 (0.2-1.0) mg/dL AST 13 L (15-37) U/L ALT 19 (14-59) U/L Alkaline Phosphatase 105 (46-116) U/L Total Protein 6.3 L (6.4-8.2) g/dl Albumin 2.8 L (3.4-5.0) g/dl Globulin 3.5 gm/dL Albumin/Globulin Ratio 0.8 L (1-2) TSH 3rd Generation 1.357 (0.358-3.74) uIU/mL Meds: Medications Generic Name Dose Route Start Last Admin Trade Name Freq PRN Reason Stop Dose Admin Sodium Chloride 100 mls @ 60 drops/min 06/02/21 22:15 06/02/21 22:15 Normal Saline IV 60 drops/min ASDIRECTED BIRD Administration Sodium Chloride 10 ml 06/02/21 22:15 06/02/21 22:14 Sodium Chloride 0.9% 10 Ml Syringe FLUSH 10 ml BOLUS BIRD Administration Discontinued Medications Generic Name Dose Route Start Last Admin Trade Name Freq PRN Reason Stop Dose Admin Albuterol 0 gm 06/02/21 23:16 06/02/21 23:22 Albuterol 6.7 Gm Inhaler INH 06/02/21 23:17 2 puff ONETIME ONE Administration Iopamidol 100 ml 06/02/21 22:13 06/02/21 22:14 Iopamidol 755 Mg/Ml 100 Ml Bottle IVPUSH 06/02/21 22:14 100 ml ONETIME ONE Administration - Re-Assessments/Exams Free Text/Narrative Re-Assessment/Exam: 06/02/21 21:21 Labs really noncontributory at this point we will go ahead and check a chest CTA to exclude a PE at this point the patient believes that when her pulse rate drops more she becomes an more short of breath however this does not seem to correlate with right sided chest discomfort in the vicinity of the scapula and along the lower chest margin. The patient is concerned about nursing and the CT according to the [employer] the amount of contrast expressing breastmilk is so small it should be considered safe I reviewed this with Dr. Nichols on-call OB who agrees that nursing should not be a concern. 06/02/21 23:19 CTA reveals no evidence of pulmonary embolism however she has some bilateral patchy airspace opacities that are primarily dependent this could represent edema or potentially atypical infection according to radiology also some mild bronchial wall thickening is noted. We will have her start an albuterol MDI 2 puffs every 4 hours while awake and see if this helps. We will hold off on antibiotics as she is concerned about nursing she has follow-up with Dr. Armstrong on Friday and can discuss further treatment and recheck at that point. We will attempt a Holter and have the patient keep a log of when she has her shortness of breath episodes and have her try and write down the exact time and see if we can make a correlation with the Holter tracing Departure - Departure Time of Disposition: 23:21 Disposition: Home, Self-Care 01 Clinical Impression: Shortness of breath, Edema, Bronchitis, Bradycardia - Discharge Information Instructions: Shortness of Breath, Adult, [id number], Bradycardia, Adult Referrals: Laurel Armstrong MD [Primary Care Provider] - Forms: ED Department Discharge Additional Instructions: Return to the emergency room with any questions or problems. Follow-up with Dr. Armstrong on Friday. Discuss how your breathing is doing and if antibiotics would help or further hinder nursing. At this point we will treat it like a bronchitis and start you on an albuterol inhaler. Use 2 puffs every 4 hours while awake. For your low pulse rate, can try a Holter monitor. Write down the exact time and date of when you have episodes of shortness of breath and see if this correlates with the Holter if this does not work discuss considering a event monitor with Dr. Armstrong. Sepsis Event Note (ED) - Evaluation Sepsis Screening Result: No Definite Risk - Focused Exam Vital Signs: Vital Signs Temp Pulse Resp BP Pulse Ox 06/02/21 19:31 36.2 C 59 L 19 129/70 95 - My Orders Last 24 Hours: My Active Orders 06/02/21 19:40 EKG 12 Lead [EKG Documentation Completion] [RC] STAT 06/02/21 21:16 Ang Chest [CT] Stat 06/02/21 22:15 Sodium Chloride 0.9% [Normal Saline] 100 ml IV ASDIRECTED Sodium Chloride 0.9% [Saline Flush] 10 ml FLUSH BOLUS 06/02/21 23:17 RT Post Treatment Assessment [RC] Click to Edit RT Pre-Treatment Assessment [RC] Click to Edit 06/02/21 23:28 Holter Monitor 24 Hours [RC] .PRN - Assessment/Plan Last 24 Hours: My Active Orders 06/02/21 19:40 EKG 12 Lead [EKG Documentation Completion] [RC] STAT 06/02/21 21:16 Ang Chest [CT] Stat 06/02/21 22:15 Sodium Chloride 0.9% [Normal Saline] 100 ml IV ASDIRECTED Sodium Chloride 0.9% [Saline Flush] 10 ml FLUSH BOLUS 06/02/21 23:17 RT Post Treatment Assessment [RC] Click to Edit RT Pre-Treatment Assessment [RC] Click to Edit 06/02/21 23:28 Holter Monitor 24 Hours [RC] .PRN
[2021-06-02] MEDS ORDERED: Iopamidol 755 Mg/ML 100 ML Bottle IVPUSH ONE (22:13)
[2021-06-02] MEDS ORDERED: Sodium Chloride 0.9% 10 ML Syringe FLUSH SCH (22:15)
[2021-06-02] MEDS ORDERED: Sodium Chloride 0.9% 100 ML IV SCH (22:15)
[2021-06-02] MEDS ORDERED: Albuterol 6.7 GM Inhaler INH ONE (23:16)
--- NOTE | 2021-06-03 08:46 | CT ---
CT chest Technique: Multiple axial sections through the chest were obtained. Intravenous contrast was utilized. Study has been performed as a pulmonary angiogram protocol. Comparison: No prior chest imaging is available. Findings: Pulmonary arteries are well opacified. No filling defects are seen to indicate pulmonary embolism. Thoracic aorta shows no aneurysm. No mediastinal adenopathy is seen. Visualized upper abdominal structures show nothing acute. Lung window settings were reviewed which show mild scattered opacities mostly groundglass within the left upper lung and within both lower lungs. Difficult to exclude minimal infectious change, bronchitis or somewhat abnormal mild pulmonary edema. Bone window settings were reviewed and show nothing acute. Impression: 1. No findings of pulmonary embolism. 2. Slight density within the left upper lung and within both lower lungs with differential as described above. 3. No other acute abnormality is seen. Diagnostic code #3 I agree with preliminary report from [facility] finalized on 06/02/21, 11:53 PM CDT, code 1
== END 2021-06-02 23:41 | disposition home or self-care (01) ==
LOC: JD.ED 19:20
DX: J40 Bronchitis, not specified as acute or chronic (principal); R60.9 Edema, unspecified; R00.1 Bradycardia, unspecified
CPT/HCPCS: 36415; 71275; 80053; 84443; 85025; 93005; 93225; 93226; 94640; 99285; A9270; Q9967; 93010; 99284

== ENCOUNTER 2021-06-24 20:52 | Emergency (ER) | payer MEDICAID ==
[2021-06-24 21:13] VITALS: BP 129/87; PULSE 63
--- NOTE | 2021-06-24 21:46 | EDM.PDOC ---
ED HPI GENERAL MEDICAL PROBLEM - General Chief Complaint: Abdominal Pain Stated Complaint: C SECTION INCISION OPENING UP Time Seen by Provider: 06/24/21 21:16 Source of Information: Reports: Patient, RN Notes Reviewed History Limitations: Reports: No Limitations - History of Present Illness INITIAL COMMENTS - FREE TEXT/NARRATIVE: She is a 31-year-old female presenting to the emergency department with concerns of her incision opening. She had completed on 25 May. Noticed yesterday that there was a small open area along the incision. Today the area seems slightly bigger. Her infant has an appointment tomorrow with Dr. Kayli Armstrong who is also her [employer], however she was concerned and would like it checked this evening. Denies any significant pain but states the area is slightly tender. She has had no fever, chills, nausea, or vomiting. Abdominal Pain Score (Numeric/FACES): 5 - Related Data Allergies Allergy/AdvReac Type Severity Reaction Status Date / Time No Known Allergies Allergy Verified 06/02/21 19:34 Home Meds: Home Meds Acetaminophen/oxyCODONE [Percocet 325-5 MG] 1 - 2 tab PO Q4H PRN #30 tablet 05/27/21 [Rx] Ibuprofen [Motrin] 800 mg PO Q8H tablet 05/27/21 [Rx] Past Medical History - Past Health History Medical/Surgical History: Denies Medical/Surgical History Social & Family History - Family History Family Medical History: Unobtainable ED ROS GENERAL - Review of Systems Review Of Systems: Comprehensive ROS is negative, except as noted in HPI. ED EXAM, GI/ABD - Physical Exam Exam: See Below Exam Limited By: No Limitations General Appearance: Alert, WD/WN, No Apparent Distress Respiratory/Chest: No Respiratory Distress, Lungs Clear, Normal Breath Sounds, No Accessory Muscle Use, Chest Non-Tender Cardiovascular: Normal Peripheral Pulses, Regular Rate, Rhythm, No Edema, No Gallop, No JVD, No Murmur, No Rub Skin Exam: Other (1 cm slightly open area along her incision. No significant redness, however there is a very small area of induration beneath the wound. No purulent drainage.) Course - Vital Signs Last Recorded V/S: Last Vital Signs Temp 98.5 F 06/24/21 21:10 Pulse 63 08/08/21 21:10 Resp 18 06/24/21 21:10 BP 129/87 06/24/21 21:10 Pulse Ox 93 L 06/24/21 21:10 - Re-Assessments/Exams Free Text/Narrative Re-Assessment/Exam: Patient is a 31-year-old female presenting to the emergency department with concerns of opening incision. She had completed approximately 1 month ago. Last evening she noticed that the wound began to open a little bit. This evening it looked slightly bigger, . On exam, there is an approximately 1 cm slightly gaping open area along the incision line. No purulent drainage. There is a small area of induration beneath the opening. Area was cleansed with chlorhexidine. Single Steri-Strip was applied over the open area. Patient will be started on Keflex for treatment of any p ossible infection. She has an appointment for her son tomorrow with Dr. Armstrong who is also her [employer]. She will have her look at it then. Discharge directions as documented. Departure - Departure Time of Disposition: 21:44 Disposition: Home, Self-Care 01 Condition: Good Clinical Impression: Problem involving surgical incision - Discharge Information *PRESCRIPTION DRUG MONITORING PROGRAM REVIEWED*: No *COPY OF PRESCRIPTION DRUG MONITORING REPORT IN PATIENT MAC: No Referrals: Laurel Armstrong MD [Primary Care Provider] - Additional Instructions: You were seen in the emergency department today for evaluation of an open area on your incision. The area was cleansed and closed with a Steri- Strip. You been started on Keflex for treatment of any possible underlying infection. Recommend leaving the Steri-Strip intact until you see Dr. Armstrong tomorrow. If you should experience any worsening symptoms, please not hesitate to return to the emergency department for reevaluation. Sepsis Event Note (ED) - Evaluation Sepsis Screening Result: No Definite Risk - Focused Exam Vital Signs: Vital Signs Temp Pulse Resp BP Pulse Ox 06/24/21 21:10 98.5 F 63 18 129/87 93 L
== END 2021-06-24 22:13 | disposition home or self-care (01) ==
LOC: JD.ED 20:52
DX: O90.89 Other complications of the puerperium, not elsewhere classified (principal)
CPT/HCPCS: 99283